=== PATIENT | female | born 1970 | race African-American/Black ===

== ENCOUNTER 2016-10-12 11:22 | Inpatient (IN) | payer BC ==
[~2016-10-12] VITALS: Ht 157.5 cm; Wt 61.7 kg
[~2016-10-12 11:22] MED LIST: CYCL-10 PO; LISI10TA5 PO; ONDA4TAB22 PO; ONDA4TAB55 PO; OXYC-133 PO; PREG75CA PO; PRO40 PO
[2016-10-12 11:40] VITALS: BP_SYST 119
--- NOTE | 2016-10-12 11:40 | NUR ---
PT. PLACED IN ROOM 7
--- NOTE | 2016-10-12 11:45 | NUR ---
dr. sen at bedside examining the pt.
--- NOTE | 2016-10-12 11:45 | NUR ---
ER at bedside examining patient.
--- NOTE | 2016-10-12 11:47 | NUR ---
Pt reports abdominal pain with vomitting since 5am today, x2 diarrhea. Pt vomitting at this time. Reports history of GERD. No other complaints.
--- NOTE | 2016-10-12 12:10 | NUR ---
pt. to bathroom ambulatory
[2016-10-12] MEDS ORDERED: MAG HYDROX/AL HYDROX/SIMETH 30 ML, BELLADONNA ALKALOIDS/PHENOBARB 10 ML, LIDOCAINE VISC... PO ONE ×3 (12:15)
[2016-10-12] MEDS ORDERED: PROMETHAZINE HCL 25 MG/ML AMP IM ONE (12:15)
[2016-10-12] MEDS ORDERED: DIPHENHYDRAMINE INJ 50 MG/ML VIAL IVP ONE (12:15)
[2016-10-12] MEDS ORDERED: KETOROLAC TROMETHAMINE 30 MG VIAL IVP ONE (12:15)
[2016-10-12] MEDS ORDERED: ONDANSETRON HCL 4 MG/2 ML VIAL IVP ONE ×2 (12:15→15:15)
[2016-10-12] MEDS ORDERED: NACL 0.9% 1,000 ML IV ONE ×2 (12:15→15:15)
[2016-10-12] MEDS ORDERED: PROCHLORPERAZINE EDISYLATE 10 MG/2 ML VIAL IVP ONE (12:15)
[2016-10-12 12:16] LABS: BASOPHILS # (AUTO) 0.1 K/uL (0.0-0.2); BASOPHILS % (AUTO) 1.4 % (0.0-2.0); EOSINOPHILS % (AUTO) 0.2 % (0.0-4.0); HEMATOCRIT 41.4 % (36-48); HEMOGLOBIN 13.4 g/dL (12.0-16.0); LYMPHOCYTES # (AUTO) 1.2 K/uL (1.0-5.5); LYMPHOCYTES % (AUTO) 15.8 % (20.5-51.5); MEAN CORPUSCULAR HEMOGLOBIN 27 pg (27-31); MEAN CORPUSCULAR HGB CONC 32 % (32-36); MEAN CORPUSCULAR VOLUME 82 fL (79.0-98.0); MONOCYTES # (AUTO) 0.3 K/uL (0.0-1.0); MONOCYTES % (AUTO) 3.9 % (1.7-9.3); NEUTROPHILS # (AUTO) 5.8 K/uL (1.8-7.7); NEUTROPHILS % (AUTO) 78.7 % (40.0-70.0); PLATELET COUNT (AUTO) 374 K/uL (130-430); RED BLOOD CELL COUNT(AUTO) 5.03 MIL/uL (4.2-6.2); RED CELL DISTRIBUTION WIDTH 12.1 % (9.0-15.0); WHITE BLOOD COUNT (AUTO) 7.4 K/uL (4.8-10.8)
[2016-10-12] MEDS ORDERED: HALOPERIDOL LACTATE 5 MG/ML VIAL IVP ONE (12:30)
[2016-10-12 12:37] LABS: CALCIUM 9.1 mg/dL (8.4-11.0); CREATININE 0.81 mg/dL (0.55-1.30); POTASSIUM 4.8 mmol/L (3.5-5.1)
[2016-10-12 12:42] LABS: TOTAL BILIRUBIN 0.5 mg/dL (0.0-1.0); TOTAL PROTEIN, SERUM 7.8 g/dL (6.4-8.3)
[2016-10-12 12:47] LABS: BILIRUBIN,URINE NEGATIVE (NEGATIVE); BLOOD, URINE NEGATIVE (NEGATIVE); CLARITY/URINE CLEAR (CLEAR); COLOR,URINE YELLOW (YELLOW); GLUCOSE,URINE NEGATIVE (NEGATIVE); KETONES,URINE NEGATIVE (NEGATIVE); LEUKOCYTE ESTERASE ,URINE NEGATIVE (NEGATIVE); NITRITE, URINE NEGATIVE (NEGATIVE); PH,URINE 6.5 (5.0-8.0); PROTEIN URINE TRACE (NEGATIVE); UROBILINOGEN,URINE 0.2 (0.2-1.0)
[2016-10-12 12:55] LABS: BARBITURATE, URINE NEGATIVE (NEG <=200); BENZODIAZEPINE, URINE NEGATIVE (NEG <=150); CANNABINOID, URINE POSITIVE (NEG <=50); COCAINE, URINE NEGATIVE (NEG <=150); METHAMPHETAMINES SCREEN,URINE NEGATIVE (NEG <=500); PHENCYCLIDINE SCREEN,URINE NEGATIVE (NEG <=25); UR TRICYCLIC ANTIDEPRESSANTS POSITIVE (NEG <=300); URINE AMPHETAMINE NEGATIVE (NEG <=500); URINE METHADONE NEGATIVE (NEG <=200); URINE OXYCODONE SCREEN POSITIVE (NEG <=100)
[2016-10-12 12:56] LABS: OPIATE, URINE NEGATIVE (NEG <=100); URINE PROPOXYPHENE SCREEN NEGATIVE (NEG <=300)
--- NOTE | 2016-10-12 12:58 | NUR ---
Pt in CT scan.
[2016-10-12] MEDS ORDERED: DEXAMETHASONE SOD PHOSPHATE 10 MG/ML VIAL IVP ONE (14:30)
[2016-10-12] MEDS ORDERED: FAMOTIDINE PF 20 MG/2 ML VIAL IVP ONE (14:45)
[2016-10-12] MEDS ORDERED: ACETAMINOPHEN 325 MG TABLET PO PRN (16:30)
[2016-10-12] MEDS ORDERED: OXYCODONE/ACETAMINOPHEN *10*mg/325 mg TABLET PO PRN (16:45)
--- NOTE | 2016-10-12 16:53 | NUR ---
ADMISSION NOTE Received patient from ER via caitie, received report from JOSH MONROY. Patient admitted with diagnosis of INTRACTABLE VOMITING. Patient oriented to hospital routine, call light, toileting and safety-patient verbalized understanding.
--- NOTE | 2016-10-12 16:53 | NUR ---
Patient will be admitted to care of Dr. Hartman. Admitted to medsurg unit. Will go to room 100A. Belongings list completed. Summary report printed. Report will be given at bedside.
[2016-10-12 17:04] VITALS: BP_SYST 122
[2016-10-12] MEDS: METOCLOPRAMIDE HCL 10 MG/2 ML VIAL IVP PRN (17:18)
[2016-10-12] MEDS ORDERED: METOCLOPRAMIDE HCL 10 MG/2 ML VIAL ONE (17:23)
--- NOTE | 2016-10-12 18:00 | NUR ---
CLOSING NOTE PT IS IN STABLE CONDITION AND HAS NOT VOMITED SINCE SHE RECEIVED HER REGLAN OVER AN HOUR AGO. PT , HAN, IS AT BEDSIDE. REPORT ENDORSED AT BEDSIDE
[2016-10-12] MEDS: SUCRALFATE 1 GM TABLET PO SCH (18:12)
[2016-10-12] MEDS: ONDANSETRON HCL 4 MG/2 ML VIAL IVP SCH ×2 (18:12→23:35)
[2016-10-12] MEDS: D5/0.45 NS 1,000 ML IV SCH (18:13)
[2016-10-12 20:00] VITALS: BP_SYST 126
--- NOTE | 2016-10-12 20:00 | NUR ---
CORRECTION-INITIAL NOTES IS AT 2000;NOT AT 2019.
--- NOTE | 2016-10-12 20:09 | NUR ---
MD CHEN CALLED [facility] AT [phone]NGUYEN MCKENZIE CHIBAO BEAN VINER.
--- NOTE | 2016-10-12 20:13 | NUR ---
SPOKE TO Lucas COBURN REGARDING IV PAIN MEDICATION, PT CAN'T TAKE PO PAIN MEDICATION, PT VOMITED OUT THE PILL PER PT'S STATEMENT. PT IS C/O ABDOMINAL PAIN 8 OUT 10 PRESSURE. MORPHINE SULFATE 2MG IVP Q 6HRS PRN SEVER PAIN.
--- NOTE | 2016-10-12 20:19 | NUR ---
INITIAL NOTES; -Pt is a/ox4, resting in bed. Pt is c/o pressure abdominal pain 01/01 and pt stated that she can't take po pain medication bc she vomited out. Will page to get IV pain medication. IV site of rt hand #24, patent,no s/s any infiltration noted. IVF D5 1/2NS @ 100ml/hr. Lung sounds clear throughout all lobes. Discussed poc, procedure, all safety measures with pt and family, and instructed pt not to get out bed to use call light for assistance, pt verbalized understanding. Fall precaution in place. All safety measures in place. Bed locked,low position,side rails x3, bed alarm in place. Place near Nurses' station. Call light w/in reach. Continue to monitor pt
[2016-10-12] MEDS: PANTOPRAZOLE SODIUM 40 MG/VIAL (PROTONIX) IVP SCH (20:29)
[2016-10-12] MEDS: MORPHINE 2 MG/ML INJ. SYRINGE IVP PRN (20:29)
--- NOTE | 2016-10-12 20:29 | NUR ---
PAIN MEDICATION GIVEN Pt is c/o abdominal pain 01/01, gave Morphine Sulfate 2mg ivp. See EMAR pain reassessment. Call light w/in reach. Continue to monitor pt.
--- NOTE | 2016-10-12 22:43 | NUR ---
INITIAL NOTES; -Pt is resting in bed. No s/s any pain,chest pain,N&V,or any acute distress noted. IV site of rt hand #24, patent,no s/s any infiltration noted. IVF D5 1/2NS @ 100ml/hr. Fall precaution in place. All safety measures in place. Bed locked,low position,side rails x3, bed alarm in place. Place near Nurses' station. Call light w/in reach. Continue to monitor pt
--- NOTE | 2016-10-12 22:43 | NUR ---
CORRECTION-@ 1150 IS ROUNDS; NOT INITIAL NOTES;
--- NOTE | 2016-10-12 23:35 | NUR ---
ROUNDS; -Gave Zofran 4mg IVP. Pt is resting in bed. Pt denies any pain,chest pain,N&V,or any acute distress. IV site of rt hand #24, patent,no s/s any infiltration noted. IVF D5 1/2NS @ 100ml/hr. Fall precaution in place. All safety measures in place. Bed locked,low position,side rails x3, bed alarm in place. Place near Nurses' station. Call light w/in reach. Continue to monitor pt
[2016-10-13 01:23] VITALS: BP_SYST 133
--- NOTE | 2016-10-13 01:30 | NUR ---
ROUNDS; -Pt is resting in bed. No s/s any pain,chest pain,N&V,or any acute distress noted. No s/s any IV infiltration noted. IVF D5 1/2NS @ 100ml/hr. Fall precaution in place. All safety measures in place. Bed locked,low position,side rails x3, bed alarm in place. Place near Nurses' station. Call light w/in reach. Continue to monitor pt
[2016-10-13] MEDS: D5/0.45 NS 1,000 ML IV SCH ×3 (03:16→20:19)
--- NOTE | 2016-10-13 03:18 | NUR ---
ROUNDS;CHANGED NEW IVF BAG -Pt is resting in bed. No s/s any pain,chest pain,N&V,or any acute distress noted. No s/s any IV infiltration noted. IVF D5 1/2NS @ 100ml/hr. Fall precaution in place. All safety measures in place. Bed locked,low position,side rails x3, bed alarm in place. Place near Nurses' station. Call light w/in reach. Continue to monitor pt
[2016-10-13 04:44] VITALS: BP_SYST 133
[2016-10-13] MEDS: ONDANSETRON HCL 4 MG/2 ML VIAL IVP SCH ×3 (05:32→17:38)
--- NOTE | 2016-10-13 05:34 | NUR ---
ROUNDS; Darcie-[employer] RE[employer] assisting to bathroom -Pt stated,''I'm in little pain, no pain medication needs this time.'' Darcie is with pt at the bathroom.
[2016-10-13] MEDS: SUCRALFATE 1 GM TABLET PO SCH ×2 (06:24→17:38)
[2016-10-13] MEDS: METOCLOPRAMIDE HCL 10 MG/2 ML VIAL IVP PRN (06:28)
[2016-10-13] MEDS: MORPHINE 2 MG/ML INJ. SYRINGE IVP PRN ×3 (06:28→23:50)
--- NOTE | 2016-10-13 06:29 | NUR ---
PAIN MEDICATION GIVEN Pt is c/o abdominal pain and N&V, gave Morphine Sulfate 2mg IVP and Reglan 10 mg IVP. See EMAR pain reassessment. Call light w/in reach. Continue to monitor pt.
--- NOTE | 2016-10-13 06:42 | NUR ---
CLOSING NOTES; -Pt is resting in bed. No s/s any acute distress noted. IV site of rt hand #24, patent,no s/s any infiltration noted. IVF D5 1/2NS @ 100ml/hr. Fall precaution in place. All safety measures in place. Bed locked,low position,side rails x3, bed alarm in place. Place near Nurses' station. Call light w/in reach. Will endorse to oncoming nurse to continue care.
--- NOTE | 2016-10-13 07:28 | NUR ---
OPENING NOTE RECEIVED REPORT FROM ORDER ENTRY REPRESENTATIVE NURSE. PATIENT IS RESTING COMFORTABLY. NO COMPLAINTS OF PAIN AT THIS TIME. NO NOTABLE SIGNS OF DISTRESS AT THIS TIME. IV RUNNING PER MD ORDERS. BED IS IN LOWEST POSITION, CALL LIGHT WITHIN REACH, AND 2 SIDE RAILS ARE UP FOR SAFETY. WILL CONTINUE TO MONITOR PATIENT FOR CHANGES IN STATUS.
[2016-10-13 07:34] LABS: BASOPHILS % (AUTO) 0.3 % (0.0-2.0); HEMATOCRIT 34.3 % (36-48); HEMOGLOBIN 11.9 g/dL (12.0-16.0); LYMPHOCYTES # (AUTO) 1.8 K/uL (1.0-5.5); LYMPHOCYTES % (AUTO) 14.5 % (20.5-51.5); MEAN CORPUSCULAR HEMOGLOBIN 28 pg (27-31); MEAN CORPUSCULAR HGB CONC 35 % (32-36); MEAN CORPUSCULAR VOLUME 81 fL (79.0-98.0); MONOCYTES # (AUTO) 0.8 K/uL (0.0-1.0); MONOCYTES % (AUTO) 6.3 % (1.7-9.3); NEUTROPHILS # (AUTO) 10.1 K/uL (1.8-7.7); NEUTROPHILS % (AUTO) 78.9 % (40.0-70.0); PLATELET COUNT (AUTO) 280 K/uL (130-430); RED BLOOD CELL COUNT(AUTO) 4.23 MIL/uL (4.2-6.2); WHITE BLOOD COUNT (AUTO) 12.7 K/uL (4.8-10.8)
[2016-10-13 07:36] LABS: CALCIUM 8.4 mg/dL (8.4-11.0); CREATININE 0.75 mg/dL (0.55-1.30); PHOSPHORUS 2.8 mg/dL (2.7-4.5); POTASSIUM 3.6 mmol/L (3.5-5.1)
[2016-10-13 08:52] VITALS: BP_SYST 126
[2016-10-13] MEDS: LISINOPRIL 10 MG TABLET (PRINIVIL) PO SCH (09:00)
[2016-10-13] MEDS ORDERED: PREGABALIN 75 MG CAPSULE (LYRICA) PO SCH (09:00)
[2016-10-13] MEDS: PREGABALIN 25 MG CAPSULE (LYRICA) PO SCH (09:00)
[2016-10-13] MEDS: PANTOPRAZOLE SODIUM 40 MG/VIAL (PROTONIX) IVP SCH ×2 (09:08→20:15)
[2016-10-13] MEDS ORDERED: PREGABALIN 25 MG CAPSULE (LYRICA) PO SCH (09:34)
--- NOTE | 2016-10-13 10:25 | NUR ---
1000 NOTE PATIENT IS RESTING COMFORTABLY, SPOUSE AT BEDSIDE. NO COMPLAINTS OF PAIN AT THIS TIME. NO NOTABLE SIGNS OF DISTRESS AT THIS TIME. IV RUNNING PER MD ORDERS. PATIENT COMPLAINT OF MILD NAUSEA, RELIEVED BY PROTONIX. WOULD LIKE MEDICATION WHEN AVAILABLE FOR NAUSEA. BED IS IN LOWEST POSITION, CALL LIGHT WITHIN REACH, AND 2 SIDE RAILS ARE UP FOR SAFETY. WILL CONTINUE TO MONITOR PATIENT FOR CHANGES IN STATUS.
[2016-10-13 11:25] VITALS: BP_SYST 117
--- NOTE | 2016-10-13 13:12 | NUR ---
1200 NOTE PATIENT IS RESTING COMFORTABLY, SPOUSE AT BEDSIDE. NO COMPLAINTS OF PAIN AT THIS TIME. NO NOTABLE SIGNS OF DISTRESS AT THIS TIME. IV RUNNING PER MD ORDERS. PATIENT COMPLAINT OF MILD NAUSEA, ZOFRAN GIVEN. BED IS IN LOWEST POSITION, CALL LIGHT WITHIN REACH, AND 2 SIDE RAILS ARE UP FOR SAFETY. WILL CONTINUE TO MONITOR PATIENT FOR CHANGES IN STATUS.
--- NOTE | 2016-10-13 14:47 | NUR ---
1400 NOTE PATIENT IS RESTING COMFORTABLY, SPOUSE AT BEDSIDE. NO COMPLAINTS OF PAIN AT THIS TIME. NO NOTABLE SIGNS OF DISTRESS AT THIS TIME. IV RUNNING PER MD ORDERS. PATIENT COMPLAINT OF MILD NAUSEA, ZOFRAN GIVEN. PAIN IN EPIGASTRIC REGION, AND MORPHINE GIVEN. PATIENT GIVEN ICE BACK FOR POSTERIOR NECK AND COOL WASHCLOTH. BED IS IN LOWEST POSITION, CALL LIGHT WITHIN REACH, AND 2 SIDE RAILS ARE UP FOR SAFETY. WILL CONTINUE TO MONITOR PATIENT FOR CHANGES IN STATUS.
[2016-10-13 15:26] VITALS: BP_SYST 145
--- NOTE | 2016-10-13 15:52 | NUR ---
MD CALL CALLED, SPOKE WITH DR. CRAIN REGARDING ORDERS FOR INPATIENT, AND DISCHARGE IS HELD UNTIL TOMORROW. CBC AND CMP TO BE ORDERED FOR TOMORROW. ORDERS ENTERED. WILL CONTINUE TO MONITOR FOR CHANGES IN STATUS. PATIENT NOTIFIED THAT SHE WILL BE STAYING OVERNIGHT AGAIN.
[2016-10-13 19:19] VITALS: BP_SYST 142
--- NOTE | 2016-10-13 19:20 | NUR ---
initial nursing notes: Took patient's vital signs, then patient went to the lobby to meet visitors. Patient is ambulatory. Patient denies of having pain.
--- NOTE | 2016-10-13 19:34 | NUR ---
1800 NOTE GAVE REPORT TO [employer] ICE MAKER RN. PATIENT IS RESTING COMFORTABLY, SPOUSE AT BEDSIDE. NO COMPLAINTS OF PAIN AT THIS TIME. NO NOTABLE SIGNS OF DISTRESS AT THIS TIME. IV RUNNING PER MD ORDERS. PATIENT COMPLAINT OF MILD NAUSEA, ZOFRAN GIVEN AT 1800. PAIN IN EPIGASTRIC REGION, AND MORPHINE GIVEN, PAIN REASSESSED, CONTROLLED AND TOLERABLE PER PATIENT. BED IS IN LOWEST POSITION, CALL LIGHT WITHIN REACH, AND 2 SIDE RAILS ARE UP FOR SAFETY.
--- NOTE | 2016-10-13 21:20 | NUR ---
nursing rounds: Patient awake in bed. Patient watching television. Patient has IV fluid infusing on the right hand IV access.
--- NOTE | 2016-10-13 23:20 | NUR ---
nursing rounds: Patient is getting ready to sleep. Snack provided per patient's request.
[2016-10-14] VITALS: BP_SYST 136
[2016-10-14] MEDS: ONDANSETRON HCL 4 MG/2 ML VIAL IVP SCH ×3 (00:08→11:50)
--- NOTE | 2016-10-14 01:20 | NUR ---
nursing rounds: Patient received pain medication for abdominal pain. Medication was effective. Patient is currently asleep.
--- NOTE | 2016-10-14 03:20 | NUR ---
nursing rounds: Patient sleeping in bed. Patient's breathing pattern is regular and unlabored.
--- NOTE | 2016-10-14 05:20 | NUR ---
nursing rounds: Patient calmly resting in bed. Call light within patient's reach.
[2016-10-14] MEDS: SUCRALFATE 1 GM TABLET PO SCH (06:47)
[2016-10-14 07:35] LABS: BASOPHILS % (AUTO) 0.4 % (0.0-2.0); EOSINOPHILS % (AUTO) 0.5 % (0.0-4.0); HEMATOCRIT 31.8 % (36-48); HEMOGLOBIN 10.6 g/dL (12.0-16.0); LYMPHOCYTES # (AUTO) 2.7 K/uL (1.0-5.5); LYMPHOCYTES % (AUTO) 45.1 % (20.5-51.5); MEAN CORPUSCULAR HEMOGLOBIN 27 pg (27-31); MEAN CORPUSCULAR HGB CONC 33 % (32-36); MEAN CORPUSCULAR VOLUME 82 fL (79.0-98.0); MONOCYTES # (AUTO) 0.7 K/uL (0.0-1.0); MONOCYTES % (AUTO) 11.2 % (1.7-9.3); NEUTROPHILS # (AUTO) 2.6 K/uL (1.8-7.7); NEUTROPHILS % (AUTO) 42.8 % (40.0-70.0); PLATELET COUNT (AUTO) 263 K/uL (130-430); RED BLOOD CELL COUNT(AUTO) 3.89 MIL/uL (4.2-6.2); RED CELL DISTRIBUTION WIDTH 11.9 % (9.0-15.0)
--- NOTE | 2016-10-14 07:36 | NUR ---
closing nursing notes: Patient is awake, alert and oriented X 4. Patient is in no acute respiratory distress. No episodes of fall and no injuries throughout the overnight babysitter. Provided nursing report to incoming morning shift nurse, ELIANA Peck, at patient's bedside.
[2016-10-14 07:46] LABS: CALCIUM 8.1 mg/dL (8.4-11.0); CREATININE 0.8 mg/dL (0.55-1.30); POTASSIUM 3.6 mmol/L (3.5-5.1)
--- NOTE | 2016-10-14 08:00 | NUR ---
INITIAL NOTE PT AWAKE, ALERT AND ORIENTED, NO S/S OF DISTRESS, COMPLAINS OF PAIN /10, WILL FOLLOW UP WITH PAIN MEDICATION, IV FLUIDS INFUSING TO RIGHT HAND AT ORDER RATE, NO S/S OF INFILTRATION NOTED, PT REORIENTED TO USE OF CALL LIGHT AND IT IS PLACED WITHIN REACH, VSS, SAFETY MEASURES IN PLACE, WILL CONTINUE TO MONITOR
[2016-10-14 08:10] VITALS: BP_SYST 122
[2016-10-14] MEDS: D5/0.45 NS 1,000 ML IV SCH (08:27)
[2016-10-14] MEDS: PANTOPRAZOLE SODIUM 40 MG/VIAL (PROTONIX) IVP SCH (08:28)
[2016-10-14] MEDS: PREGABALIN 25 MG CAPSULE (LYRICA) PO SCH (08:28)
[2016-10-14] MEDS: MORPHINE 2 MG/ML INJ. SYRINGE IVP PRN (08:29)
[2016-10-14] MEDS: LISINOPRIL 10 MG TABLET (PRINIVIL) PO SCH (08:30)
--- NOTE | 2016-10-14 10:00 | NUR ---
ROUNDS PT SITTING IN BEDSIDE CHAIR, NO S/S OF DISTRESS OR COMPLAINT OF PAIN AT THIS TIME, DR HANNON MAKING ROUNDS, SAFETY MEASURES IN PLACE, CALL LIGHT WITHIN REACH, WILL CONTINUE TO MONITOR.
[2016-10-14 11:10] VITALS: BP_SYST 140
--- NOTE | 2016-10-14 11:33 | NUR ---
PER PATIENT, TRANSPORTATION ARRANGED VIA [facility] [phone], SMOKE ROOM OPERATOR FROM MAIN LOBBY AROUND NOON. WILL NOTIFY PATIENT AND CONTINUE DISCHARGE
[2016-10-14 12:08] VITALS: BP_SYST 137
--- NOTE | 2016-10-14 13:12 | NUR ---
D/C Patient Patient given medication reconciliation form and D/C instructions. Exit Care provided. Patient verbalized understanding. MD discussed with patient the results and treatment provided. Ambulatory with steady gait for discharge to home. Patient in stable condition, ID band removed. IV catheter removed, intact and dressing applied, no active bleeding. Patient educated on pain management. All belongings sent with patient. PER PATIENT REQUEST PREVIOUS TAXI ARRANGED WAS CANCELLED AND PATIENT WAS PICKED UP BY A FRIEND.
== END 2016-10-14 13:12 | disposition home or self-care (01) | DRG 392 ==
LOC: SED 11:22 → SMU 16:28 → OBSVTOIN 10-13 15:58
PROVIDERS: ADMIT Internal Medicine; ATTEND Internal Medicine
DX: K58.9 Irritable bowel syndrome, unspecified (principal); R11.2 Nausea with vomiting, unspecified; F12.90 Cannabis use, unspecified, uncomplicated; F17.200 Nicotine dependence, unspecified, uncomplicated; I10 Essential (primary) hypertension; M79.7 Fibromyalgia; K21.9 Gastro-esophageal reflux disease without esophagitis; R91.1 Solitary pulmonary nodule; G89.29 Other chronic pain; Z72.89 Other problems related to lifestyle; Z98.51 Tubal ligation status; Z90.710 Acquired absence of both cervix and uterus; Z79.899 Other long term (current) drug therapy; Z88.5 Allergy status to narcotic agent; N80.9 Endometriosis, unspecified
CPT/HCPCS: 36415; 80048; 80053; 80307; 81003; 81025; 83690-TC; 83735-TC; 84100-TC; 85025; 96374; 96375; 96376; 99285; C9113; G0378; J0780; J1100; J1200; J1630; J1885; J2001; J2270; J2405; J2550; J2765; J3490; J7030

== ENCOUNTER 2018-11-08 12:14 | Observation (INO) | payer BC ==
[~2018-11-08] VITALS: Ht 157.5 cm; Wt 55.8 kg
[2018-11-08 12:15] VITALS: BP_SYST 138
[2018-11-08] MEDS ORDERED: NACL 0.9% 1,000 ML IV ONE (13:00)
[2018-11-08] MEDS ORDERED: MORPHINE 4 MG/ML INJ. SYRINGE IVP ONE (13:00)
[2018-11-08] MEDS ORDERED: ONDANSETRON HCL 4 MG/2 ML VIAL IVP ONE (13:00)
[2018-11-08 13:28] LABS: BASOPHILS % (AUTO) 0.3 % (0.0-2.0); HEMATOCRIT 43.7 % (36-48); HEMOGLOBIN 14.6 g/dL (12.0-16.0); LYMPHOCYTES # (AUTO) 0.8 K/uL (1.0-5.5); LYMPHOCYTES % (AUTO) 9.8 % (20.5-51.5); MEAN CORPUSCULAR HEMOGLOBIN 28 pg (27-31); MEAN CORPUSCULAR HGB CONC 33 % (32-36); MEAN CORPUSCULAR VOLUME 84 fL (79.0-98.0); MONOCYTES # (AUTO) 0.2 K/uL (0.0-1.0); MONOCYTES % (AUTO) 2.2 % (1.7-9.3); NEUTROPHILS # (AUTO) 7.2 K/uL (1.8-7.7); NEUTROPHILS % (AUTO) 87.7 % (40.0-70.0); PLATELET COUNT (AUTO) 315 K/uL (130-430); RED BLOOD CELL COUNT(AUTO) 5.24 MIL/uL (4.2-6.2); RED CELL DISTRIBUTION WIDTH 12.7 % (9.0-15.0); WHITE BLOOD COUNT (AUTO) 8.2 K/uL (4.8-10.8)
[2018-11-08 13:41] LABS: CREATININE 0.78 mg/dL (0.55-1.30); POTASSIUM 4.1 mmol/L (3.5-5.1)
[2018-11-08 13:45] LABS: TOTAL BILIRUBIN 0.9 mg/dL (0.0-1.0)
[2018-11-08 14:02] LABS: BILIRUBIN,URINE 1+ (NEGATIVE); BLOOD, URINE NEGATIVE (NEGATIVE); CLARITY/URINE CLEAR (CLEAR); COLOR,URINE YELLOW (YELLOW); GLUCOSE,URINE NEGATIVE (NEGATIVE); KETONES,URINE 2+ (NEGATIVE); LEUKOCYTE ESTERASE ,URINE NEGATIVE (NEGATIVE); NITRITE, URINE NEGATIVE (NEGATIVE); PH,URINE 6.5 (5.0-8.0); PROTEIN URINE 1+ (NEGATIVE); UROBILINOGEN,URINE 0.2 (0.2-1.0)
[2018-11-08 14:07] LABS: WBC,URINE 0-3 /HPF (0-3)
[2018-11-08 14:08] LABS: BACTERIA,URINE FEW /HPF (None Seen); MUCUS,URINE 1+ /LPF (None Seen)
[2018-11-08 14:19] LABS: BARBITURATE, URINE NEGATIVE (NEG <=200); BENZODIAZEPINE, URINE NEGATIVE (NEG <=150); COCAINE, URINE NEGATIVE (NEG <=150); METHAMPHETAMINES SCREEN,URINE NEGATIVE (NEG <=500); OPIATE, URINE NEGATIVE (NEG <=100); PHENCYCLIDINE SCREEN,URINE NEGATIVE (NEG <=25); UR TRICYCLIC ANTIDEPRESSANTS NEGATIVE (NEG <=300); URINE AMPHETAMINE NEGATIVE (NEG <=500); URINE METHADONE NEGATIVE (NEG <=200); URINE OXYCODONE SCREEN NEGATIVE (NEG <=100); URINE PROPOXYPHENE SCREEN NEGATIVE (NEG <=300)
[2018-11-08 14:20] LABS: CANNABINOID, URINE POSITIVE (NEG <=50)
[2018-11-08] MEDS ORDERED: LOSA25TA3 PO (15:46)
[2018-11-08 16:22] VITALS: BP_SYST 139
[2018-11-08] MEDS ORDERED: ACETAMINOPHEN 325 MG TABLET PO PRN (16:30)
[2018-11-08] MEDS: METOCLOPRAMIDE HCL 10 MG/2 ML VIAL IVP PRN (16:54)
[2018-11-08] MEDS: MORPHINE 2 MG/ML INJ. SYRINGE IVP PRN ×2 (16:54→21:29)
[2018-11-08] MEDS: D5NS 1,000 ML IV SCH (17:34)
[2018-11-08 19:35] VITALS: BP_SYST 134
[2018-11-08] MEDS: ONDANSETRON HCL 4 MG/2 ML VIAL IVP PRN (20:07)
[2018-11-09 01:26] VITALS: BP_SYST 116
[2018-11-09] MEDS: METOCLOPRAMIDE HCL 10 MG/2 ML VIAL IVP PRN (02:20)
[2018-11-09] MEDS: MORPHINE 2 MG/ML INJ. SYRINGE IVP PRN ×4 (02:21→23:24)
[2018-11-09] MEDS: D5NS 1,000 ML IV SCH ×3 (02:27→20:59)
[2018-11-09] MEDS: ONDANSETRON HCL 4 MG/2 ML VIAL IVP PRN ×2 (06:06→20:45)
[2018-11-09 08:05] VITALS: BP_SYST 130
[2018-11-09] MEDS ORDERED: PANTOPRAZOLE SODIUM 40 MG TAB PO ONE (10:00)
[2018-11-09] MEDS ORDERED: LOSARTAN POTASSIUM 25 MG TABLET PO ONE (10:00)
[2018-11-09] MEDS: METOCLOPRAMIDE HCL 10 MG/2 ML VIAL IVP SCH ×2 (12:57→23:15)
[2018-11-09 12:59] VITALS: BP_SYST 152
[2018-11-09 16:54] VITALS: BP_SYST 159
[2018-11-09 20:00] VITALS: BP_SYST 125
[2018-11-10 06:00] VITALS: BP_SYST 128
[2018-11-10] MEDS: ONDANSETRON HCL 4 MG/2 ML VIAL IVP PRN (06:35)
[2018-11-10] MEDS: METOCLOPRAMIDE HCL 10 MG/2 ML VIAL IVP SCH (06:37)
[2018-11-10] MEDS: D5NS 1,000 ML IV SCH (06:43)
[2018-11-10 07:49] LABS: ALBUMIN 2.9 g/dL (3.4-4.8); CALCIUM 8.4 mg/dL (8.4-11.0); CREATININE 0.72 mg/dL (0.55-1.30); POTASSIUM 3.4 mmol/L (3.5-5.1); TOTAL BILIRUBIN 0.9 mg/dL (0.0-1.0)
[2018-11-10 08:07] VITALS: BP_SYST 129
[2018-11-10] MEDS ORDERED: PANTOPRAZOLE SODIUM 40 MG TAB PO SCH (09:00)
[2018-11-10] MEDS ORDERED: LOSARTAN POTASSIUM 25 MG TABLET PO SCH (09:00)
[2018-11-10] MEDS: MORPHINE 2 MG/ML INJ. SYRINGE IVP PRN (09:42)
[2018-11-10 11:54] VITALS: BP_SYST 150
[2018-11-10 13:45] VITALS: BP_SYST 144
== END 2018-11-10 14:25 | disposition home or self-care (01) ==
LOC: SED 12:14 → INTOOBSV 15:35 → SMU 15:35
PROVIDERS: ADMIT Internal Medicine Hospice and Palliative Medicine; ATTEND Internal Medicine Hospice and Palliative Medicine
DX: R11.2 Nausea with vomiting, unspecified (principal); I10 Essential (primary) hypertension; F12.90 Cannabis use, unspecified, uncomplicated; G43.A0 Cyclical vomiting, in migraine, not intractable
CPT/HCPCS: 36415; 80053; 80307; 81000-TC; 83605; 83690-TC; 85025; 96361; 96374; 96375; 99285; G0378; J2270; J2405; J2765; J7042

== ENCOUNTER 2019-02-16 08:12 | Emergency (ER) | payer BC ==
[~2019-02-16] VITALS: Ht 157.5 cm; Wt 56.7 kg
[~2019-02-16 08:12] MED LIST changes: -CYCL-10 PO; -LISI10TA5 PO; +LOSA25TA3 PO; -ONDA4TAB22 PO; -PREG75CA PO
[2019-02-16 08:20] VITALS: BP_SYST 148
[2019-02-16 09:16] LABS: BILIRUBIN,URINE NEGATIVE (NEGATIVE); BLOOD, URINE NEGATIVE (NEGATIVE); CLARITY/URINE CLEAR (CLEAR); COLOR,URINE YELLOW (YELLOW); GLUCOSE,URINE NEGATIVE (NEGATIVE); KETONES,URINE NEGATIVE (NEGATIVE); LEUKOCYTE ESTERASE ,URINE NEGATIVE (NEGATIVE); NITRITE, URINE NEGATIVE (NEGATIVE); PH,URINE 6.5 (5.0-8.0); PROTEIN URINE NEGATIVE (NEGATIVE); UROBILINOGEN,URINE 0.2 (0.2-1.0)
[2019-02-16] MEDS ORDERED: PREDNISONE 20 MG TABLET PO ONE (11:15)
[2019-02-16 20:22] VITALS: BP_SYST 134
== END 2019-02-16 11:25 | disposition home or self-care (01) ==
LOC: SED 08:12
DX: N83.202 Unspecified ovarian cyst, left side (principal); K21.9 Gastro-esophageal reflux disease without esophagitis; I10 Essential (primary) hypertension; M79.7 Fibromyalgia; Z88.6 Allergy status to analgesic agent; Z91.011 Allergy to milk products; Z79.899 Other long term (current) drug therapy
CPT/HCPCS: 76830; 76857; 81003; 81025; 99284; J7512

== ENCOUNTER 2019-02-18 03:05 | Emergency (ER) | payer BC ==
[~2019-02-18] VITALS: Ht 157.5 cm; Wt 54.4 kg
[2019-02-18 03:10] VITALS: BP_SYST 160
[2019-02-18 05:37] LABS: BASOPHILS # (AUTO) 0.1 K/uL (0.0-0.2); BASOPHILS % (AUTO) 0.6 % (0.0-2.0); EOSINOPHILS % (AUTO) 0.3 % (0.0-4.0); HEMATOCRIT 38.4 % (36-48); HEMOGLOBIN 12.9 g/dL (12.0-16.0); LYMPHOCYTES # (AUTO) 4.2 K/uL (1.0-5.5); LYMPHOCYTES % (AUTO) 43.1 % (20.5-51.5); MEAN CORPUSCULAR HEMOGLOBIN 28 pg (27-31); MEAN CORPUSCULAR HGB CONC 34 % (32-36); MEAN CORPUSCULAR VOLUME 83 fL (79.0-98.0); MONOCYTES # (AUTO) 0.6 K/uL (0.0-1.0); MONOCYTES % (AUTO) 6.3 % (1.7-9.3); NEUTROPHILS # (AUTO) 4.8 K/uL (1.8-7.7); NEUTROPHILS % (AUTO) 49.7 % (40.0-70.0); PLATELET COUNT (AUTO) 296 K/uL (130-430); RED BLOOD CELL COUNT(AUTO) 4.65 MIL/uL (4.2-6.2); RED CELL DISTRIBUTION WIDTH 13.4 % (9.0-15.0); WHITE BLOOD COUNT (AUTO) 9.7 K/uL (4.8-10.8)
[2019-02-18] MEDS ORDERED: MORPHINE 4 MG/ML INJ. SYRINGE IM ONE (05:45)
[2019-02-18 05:51] LABS: CREATININE 0.8 mg/dL (0.55-1.30); POTASSIUM 3.3 mmol/L (3.5-5.1)
[2019-02-18 05:57] LABS: ALBUMIN 3.7 g/dL (3.4-4.8); TOTAL BILIRUBIN 0.2 mg/dL (0.0-1.0)
[2019-02-18] MEDS ORDERED: FLUCONAZOLE 200 MG TABLET (DIFLUCAN) PO ONE (06:00)
[2019-02-18 06:14] LABS: BILIRUBIN,URINE NEGATIVE (NEGATIVE); BLOOD, URINE NEGATIVE (NEGATIVE); CLARITY/URINE CLEAR (CLEAR); COLOR,URINE YELLOW (YELLOW); GLUCOSE,URINE NEGATIVE (NEGATIVE); KETONES,URINE NEGATIVE (NEGATIVE); LEUKOCYTE ESTERASE ,URINE TRACE (NEGATIVE); NITRITE, URINE NEGATIVE (NEGATIVE); PH,URINE 6.5 (5.0-8.0); PROTEIN URINE NEGATIVE (NEGATIVE); UROBILINOGEN,URINE 0.2 (0.2-1.0)
[2019-02-18] MEDS ORDERED: FLUCONAZOLE 100 MG TABLET (DIFLUCAN) ONE (06:29)
[2019-02-18 06:38] LABS: BACTERIA,URINE FEW /HPF (None Seen); RBC,URINE 0-3 /HPF (0-3); WBC,URINE 0-3 /HPF (0-3)
[2019-02-18 07:40] VITALS: BP_SYST 152
== END 2019-02-18 07:40 | disposition home or self-care (01) ==
LOC: SED 03:05
DX: N76.0 Acute vaginitis (principal); B37.3 Candidiasis of vulva and vagina; K21.9 Gastro-esophageal reflux disease without esophagitis; I10 Essential (primary) hypertension; M79.7 Fibromyalgia; Z88.6 Allergy status to analgesic agent; Z91.011 Allergy to milk products; Z79.899 Other long term (current) drug therapy
CPT/HCPCS: 36415; 80053; 81000; 85025; 96372; 99283; J2270

== ENCOUNTER 2020-07-01 11:35 | Inpatient (IN) | payer BC, SELFPAY ==
[~2020-07-01] VITALS: Ht 157.5 cm; Wt 59.0 kg
[2020-07-01 11:44] VITALS: BP_SYST 96
[2020-07-01] MEDS ORDERED: NACL 0.9% 1,000 ML IV ONE (12:00)
[2020-07-01] MEDS ORDERED: ONDANSETRON HCL 4 MG/2 ML VIAL IVP ONE (12:00)
[2020-07-01] MEDS ORDERED: HALOPERIDOL LACTATE 5 MG/ML VIAL IVP ONE (12:15)
[2020-07-01 12:31] LABS: BASOPHILS % (AUTO) 0.4 % (0.0-2.0); EOSINOPHILS % (AUTO) 0.4 % (0.0-4.0); HEMATOCRIT 40.3 % (36-48); HEMOGLOBIN 13.7 g/dL (12.0-16.0); LYMPHOCYTES # (AUTO) 1.1 K/uL (1.0-5.5); LYMPHOCYTES % (AUTO) 11.1 % (20.5-51.5); MEAN CORPUSCULAR HEMOGLOBIN 28 pg (27-31); MEAN CORPUSCULAR HGB CONC 34 % (32-36); MEAN CORPUSCULAR VOLUME 81 fL (79.0-98.0); MONOCYTES # (AUTO) 0.2 K/uL (0.0-1.0); MONOCYTES % (AUTO) 1.6 % (1.7-9.3); NEUTROPHILS # (AUTO) 8.3 K/uL (1.8-7.7); NEUTROPHILS % (AUTO) 86.5 % (40.0-70.0); PLATELET COUNT (AUTO) 348 K/uL (130-430); RED BLOOD CELL COUNT(AUTO) 4.96 MIL/uL (4.2-6.2); RED CELL DISTRIBUTION WIDTH 13.2 % (9.0-15.0); WHITE BLOOD COUNT (AUTO) 9.6 K/uL (4.8-10.8)
[2020-07-01 12:48] LABS: ANION GAP 11 (5-15); CALCIUM 9.6 mg/dL (8.4-11.0); CHLORIDE 104 mmol/L (98-107); CREATININE 0.93 mg/dL (0.55-1.30); GLUCOSE 122 mg/dL (70-99); POTASSIUM 4.4 mmol/L (3.5-5.1); SODIUM SERUM 142 mmol/L (136-145); UREA NITROGEN, BLOOD 15 mg/dL (8-21)
[2020-07-01 12:50] LABS: GFR AFRICAN AMERICAN 83 mL/min (>90)
[2020-07-01 12:57] LABS: ALANINE AMINOTRANSFERASE 20 U/L (12-78); ALBUMIN 4.2 g/dL (3.4-4.8); ASPARTATE AMINOTRANSFERASE 10 U/L (10-37); BILIRUBIN,DIRECT 0.1 mg/dL (0.0-0.3); LIPASE 36 U/L (73-393); TOTAL BILIRUBIN 0.6 mg/dL (0.0-1.0)
[2020-07-01 13:32] LABS: BILIRUBIN,URINE 1+ (NEGATIVE); BLOOD, URINE NEGATIVE (NEGATIVE); CLARITY/URINE SL CLOUDY (CLEAR); COLOR,URINE YELLOW (YELLOW); GLUCOSE,URINE NEGATIVE (NEGATIVE); KETONES,URINE 3+ (NEGATIVE); LEUKOCYTE ESTERASE ,URINE NEGATIVE (NEGATIVE); NITRITE, URINE NEGATIVE (NEGATIVE); PH,URINE 8.5 (5.0-8.0); PROTEIN URINE 1+ (NEGATIVE); UROBILINOGEN,URINE 0.2 (0.2-1.0)
[2020-07-01 13:53] LABS: BACTERIA,URINE None Seen /HPF (None Seen); RBC,URINE NONE SEEN /HPF (0-3); WBC,URINE NONE SEEN /HPF (0-3)
[2020-07-01] MEDS: HALOPERIDOL LACTATE 5 MG/ML VIAL IVP ONE ×2 (14:08→15:06)
[2020-07-01] MEDS ORDERED: HALOPERIDOL LACTATE 5 MG/ML VIAL ONE (14:49)
[2020-07-01] MEDS ORDERED: FAMOTIDINE 20 MG TABLET PO ONE (15:15)
[2020-07-01] MEDS ORDERED: MAG-AL HYDROX/SIMETH 30 ML UDC PO ONE (15:15)
[2020-07-01] MEDS ORDERED: MAGNESIUM SULFATE 1 GM/2 ML VIAL IVP ONE (15:45)
[2020-07-01] MEDS ORDERED: METOCLOPRAMIDE HCL 10 MG/2 ML VIAL IVP ONE (15:45)
[2020-07-01] MEDS ORDERED: D5LR 1,000 ML IV ONE (15:45)
[2020-07-01] MEDS ORDERED: MAGNESIUM SULFATE 1 GM/2 ML VIAL ONE (16:35)
[2020-07-01] MEDS: NACL 0.9% 1,000 ML IV SCH (16:53)
[2020-07-01 17:23] VITALS: BP_SYST 107
[2020-07-01 20:00] VITALS: BP_SYST 128
[2020-07-01] MEDS: METOCLOPRAMIDE HCL 10 MG/2 ML VIAL IVP PRN (22:42)
[2020-07-02] MEDS ORDERED: ONDANSETRON HCL 4 MG/2 ML VIAL ONE ×2 (00:54→18:21)
[2020-07-02] MEDS: ONDANSETRON HCL 4 MG/2 ML VIAL IM PRN ×2 (00:56→18:19)
[2020-07-02] MEDS: NACL 0.9% 1,000 ML IV SCH ×3 (02:00→23:59)
[2020-07-02 02:04] VITALS: BP_SYST 128
[2020-07-02 07:43] VITALS: BP_SYST 123
[2020-07-02 08:00] VITALS: BP_SYST 123
[2020-07-02 08:23] LABS: BASOPHILS % (AUTO) 0.4 % (0.0-2.0); HEMATOCRIT 32.6 % (36-48); HEMOGLOBIN 11.2 g/dL (12.0-16.0); LYMPHOCYTES # (AUTO) 2.4 K/uL (1.0-5.5); LYMPHOCYTES % (AUTO) 22.2 % (20.5-51.5); MEAN CORPUSCULAR HEMOGLOBIN 28 pg (27-31); MEAN CORPUSCULAR HGB CONC 34 % (32-36); MEAN CORPUSCULAR VOLUME 81 fL (79.0-98.0); MONOCYTES # (AUTO) 0.8 K/uL (0.0-1.0); MONOCYTES % (AUTO) 7.9 % (1.7-9.3); NEUTROPHILS # (AUTO) 7.3 K/uL (1.8-7.7); NEUTROPHILS % (AUTO) 69.5 % (40.0-70.0); PLATELET COUNT (AUTO) 265 K/uL (130-430); RED BLOOD CELL COUNT(AUTO) 4.03 MIL/uL (4.2-6.2); WHITE BLOOD COUNT (AUTO) 10.6 K/uL (4.8-10.8)
[2020-07-02] MEDS: METOCLOPRAMIDE HCL 10 MG/2 ML VIAL IVP PRN ×2 (08:27→18:19)
[2020-07-02] MEDS: PANTOPRAZOLE SODIUM 40 MG/VIAL (PROTONIX) IVP SCH (08:27)
[2020-07-02 08:39] LABS: ALBUMIN 3.1 g/dL (3.4-4.8); CALCIUM 8.1 mg/dL (8.4-11.0); CREATININE 0.72 mg/dL (0.55-1.30); POTASSIUM 3.7 mmol/L (3.5-5.1); TOTAL BILIRUBIN 0.6 mg/dL (0.0-1.0)
[2020-07-02 12:22] VITALS: BP_SYST 155
[2020-07-02 16:39] VITALS: BP_SYST 115
[2020-07-02] MEDS ORDERED: ACETAMINOPHEN 325 MG TABLET PO PRN (19:00)
[2020-07-02 20:10] VITALS: BP_SYST 137
[2020-07-02] MEDS: MORPHINE 2 MG/ML INJ. SYRINGE IVP PRN (20:12)
[2020-07-03 00:05] VITALS: BP_SYST 150
[2020-07-03] MEDS: MORPHINE 2 MG/ML INJ. SYRINGE IVP PRN ×2 (00:08→06:01)
[2020-07-03 08:00] VITALS: BP_SYST 129
[2020-07-03] MEDS: PANTOPRAZOLE SODIUM 40 MG/VIAL (PROTONIX) IVP SCH (08:35)
[2020-07-03] MEDS ORDERED: MIDAZOLAM HCL 5 MG/5 ML VIAL ONE (09:02)
[2020-07-03] MEDS ORDERED: MEPERIDINE HCL/PF 100 MG/ML AMP ONE (09:02)
[2020-07-03] MEDS ORDERED: BENZOCAINE 20% 0.5mL UD SPRAY MM ONE (09:17)
[2020-07-03] MEDS: NACL 0.9% 1,000 ML IV SCH ×2 (12:07→16:56)
[2020-07-03 12:40] VITALS: BP_SYST 135
[2020-07-03] MEDS: fentaNYL CITRATE/PF 100 MCG/2 ML AMP IVP PRN ×2 (15:31→20:23)
[2020-07-03 16:14] VITALS: BP_SYST 137
[2020-07-03 20:23] VITALS: BP_SYST 146
[2020-07-04 00:50] VITALS: BP_SYST 138
[2020-07-04 01:16] VITALS: BP_SYST 146
[2020-07-04] MEDS: fentaNYL CITRATE/PF 100 MCG/2 ML AMP IVP PRN ×2 (02:10→09:07)
[2020-07-04] MEDS: NACL 0.9% 1,000 ML IV SCH (06:47)
[2020-07-04 08:00] VITALS: BP_SYST 146
[2020-07-04] MEDS: PANTOPRAZOLE SODIUM 40 MG/VIAL (PROTONIX) IVP SCH (09:03)
[2020-07-04] MEDS ORDERED: PRO40 PO (10:22)
[2020-07-04] MEDS ORDERED: SUCR1TAB78 PO (10:22)
[2020-07-04 12:00] VITALS: BP_SYST 165
[2020-07-04 13:49] VITALS: BP_SYST 120
== END 2020-07-04 14:05 | disposition home or self-care (01) | DRG 392 ==
LOC: SED 11:35 → SMU 15:52 → OBSVTOIN 07-03 11:00
PROVIDERS: ADMIT Internal Medicine Hospice and Palliative Medicine; ATTEND Internal Medicine Hospice and Palliative Medicine
PROC: 0DB78ZX Excision of Stomach, Pylorus, Via Natural or Artificial Opening Endoscopic, Diagnostic (ICD-10-PCS; 2020-07-03)
PROC: 0DB98ZX Excision of Duodenum, Via Natural or Artificial Opening Endoscopic, Diagnostic (ICD-10-PCS; principal; 2020-07-03 09:15)
DX: K31.84 Gastroparesis (principal); K29.70 Gastritis, unspecified, without bleeding; R11.15 Cyclical vomiting syndrome unrelated to migraine; I10 Essential (primary) hypertension; K21.9 Gastro-esophageal reflux disease without esophagitis; F12.90 Cannabis use, unspecified, uncomplicated; F17.200 Nicotine dependence, unspecified, uncomplicated; M79.7 Fibromyalgia; Z20.822 Contact with and (suspected) exposure to COVID-19; Z88.6 Allergy status to analgesic agent; Z88.8 Allergy status to other drugs, medicaments and biological substances; Z79.891 Long term (current) use of opiate analgesic
CPT/HCPCS: 36415; 74176; 76376; 78264; 80048; 80053; 80076; 81000; 83690; 83880; 84484; 85025; 87426; 93005; 96361; 96365; 96375; 99285; A9541; 88305; 88312; 88313; C9113; G0378; J1630; J2175; J2250; J2270; J2405; J2765; J3010; J3475